=== PATIENT | female | born 1945 | race Caucasian/White ===

== ENCOUNTER 2019-12-13 08:48 | Emergency (ER) | payer MEDICARE ==
[~2019-12-13] VITALS: Ht 162 cm; Wt 172.2 kg
[2019-12-13] MEDS ORDERED: ESTR42.511 (09:41)
[2019-12-13] MEDS ORDERED: METO-333 (09:41)
[2019-12-13 09:46] LABS: BILIRUBIN,URINE NEGATIVE (NEGATIVE); CLARITY,URINE CLEAR; COLOR,URINE YELLOW; GLUCOSE, URINE (UA) NEGATIVE (NEGATIVE); KETONES,URINE NEGATIVE (NEGATIVE); LEUKOCYTE ESTERASE ,URINE NEGATIVE (NEGATIVE); NITRITE,URINE NEGATIVE (NEGATIVE); PROTEIN,URINE NEGATIVE (NEGATIVE)
[2019-12-13 09:59] LABS: BACTERIA,URINE NEGATIVE /HPF; CALCIUM OXALATE CRYSTALS,UR FEW /LPF; RBC,URINE RARE /HPF; SQUAMOUS EPITHELIAL CELL,UR 0-2 /HPF
--- NOTE | 2019-12-13 10:14 | ED Back Pain ---
General Chief Complaint: Back Problems Stated Complaint: BACK PAIN;R HAND PAIN;SOA Nursing Triage Note: TO ED PER W/C FROM HOME PATIENT REPORTS THAT SHE HAS HAD BACKPAIN FOR SEVERAL DAYS GOES ACRESS MIDDLE OF BACK. PAIN WORSE WHEN SHE MOVES. Nursing Sepsis Screen: No Definite Risk Source of Information: Patient Exam Limitations: No Limitations History of Present Illness Date Seen by Provider: Dec 13, 2019 Time Seen by Provider: 09:50 Initial Comments Initially accepted back pain and rib pain as well as left shoulder pain. Further evaluation reveals the patient has complaint of 2 weeks of cough with pain under her right ribs that has now moved to the left shoulder blade area. This is exacerbated by movement of the left arm. She also reports that she has atrial fibrillation but is not on anticoagulation. She did smoke but has quit. She takes blood pressure medicines. Denies nausea, vomiting, weakness or sweating. Denies specific breathing problems except for the cough exacerbation. Denies fever or chills. Timing/Duration: 2-3 Days, Changing Over Time, Getting Worse Severity: Moderate Pain/Injury Location: Back (left shoulder blade), Chest (tender bilateral ribs that is worse with cough) Radiation: Other (none) Method of Injury: Other (coughing) Modifying Factors: Improves With Immobilization; Worse With Movement (especially of the left arm); Improves With Rest Associated Symptoms: No fever, No weakness, No lower back pain Allergies and Home Medications Allergies Coded Allergies: No Known Drug Allergies (Unverified , 12/13/19) Patient Home Medication List Home Medication List Reviewed: Yes Review of Systems Constitutional: see HPI; No chills, No diaphoresis, No fever, No weakness EENTM: No nose congestion, No throat pain Respiratory: cough; No short of breath, No wheezing Cardiovascular: chest pain; No edema, No palpitations Gastrointestinal: abdominal pain (under ribs bilaterally); No nausea, No vomiting Musculoskeletal: see HPI, back pain, muscle pain Skin: No change in color, No lesions Psychiatric/Neurological: No Symptoms Reported All Other Systems Reviewed Negative Unless Noted: Yes Past Bjvlrwa-Bhufhj-Kklcqq Hx Past Med/Social Hx: Reviewed Nursing Past Med/Soc Hx Patient Social History Alcohol Use: Denies Use Recreational Drug Use: No Smoking Status: Never a Smoker Recent Foreign Travel: No Contact w/Someone Who Travel: No Recent Infectious Disease Expo: No Past Medical History Surgeries: Yes Respiratory: Yes COPD Cardiac: Yes Hypertension 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 oz. kg; 65.00 BMI Method: General Appearance: No Apparent Distress, WD/WN HEENT: PERRL/EOMI, Pharynx Normal Neck: Non Tender, Supple Cardiovascular: Regular Rate, Rhythm, No Murmur Respiratory: Lungs Clear, Normal Breath Sounds Gastrointestinal: Non Tender, Soft Back: No CVA Tenderness, No Vertebral Tenderness, Other (tender between scapula and spine on left eyelid) Extremity: Normal Range of Motion, Other (pain to left shoulder blade area exacerbated by arm movement) Neurologic/Psychiatric: Alert, Oriented x3 Skin: Normal Color, Warm/Dry Progress/Results/Core Measures Results/Orders Lab Results Laboratory Tests Test 12/13/19 09:39 12/13/19 10:50 12/13/19 11:15 Range/Units Urine Color YELLOW Urine Clarity CLEAR Urine pH 6.0 5-9 Urine Specific [place] <=1.005 1.016-1.022 Urine Protein NEGATIVE NEGATIVE Urine Glucose (UA) NEGATIVE NEGATIVE Urine Ketones NEGATIVE NEGATIVE Urine Nitrite NEGATIVE NEGATIVE Urine Bilirubin NEGATIVE NEGATIVE Urine Urobilinogen 0.2 < = 1.0 MG/DL Urine Leukocyte Esterase NEGATIVE NEGATIVE Urine RBC (Auto) NEGATIVE NEGATIVE Urine RBC RARE /HPF Urine WBC NONE /HPF Urine Squamous Epithelial Cells 0-2 /HPF Urine Crystals PRESENT H /LPF Urine Calcium Oxalate Crystals FEW H /LPF Urine Bacteria NEGATIVE /HPF Urine Casts NONE /LPF Urine Mucus NEGATIVE /LPF Urine Culture Indicated NO White Blood Count 12.7 H 4.3-11.0 10^3/uL Red Blood Count 4.72 4.35-5.85 10^6/uL Hemoglobin 13.2 11.5-16.0 G/DL Hematocrit 41 35-52 % Mean Corpuscular Volume 87 80-99 FL Mean Corpuscular Hemoglobin 28 25-34 PG Mean Corpuscular Hemoglobin Concent 32 32-36 G/DL Red Cell Distribution Width 15.7 H 10.0-14.5 % Platelet Count 248 130-400 10^3/uL Mean Platelet Volume 10.6 H 7.4-10.4 FL Neutrophils (%) (Auto) 69 42-75 % Lymphocytes (%) (Auto) 17 12-44 % Monocytes (%) (Auto) 12 0-12 % Eosinophils (%) (Auto) 2 0-10 % Basophils (%) (Auto) 0 0-10 % Neutrophils # (Auto) 8.8 H 1.8-7.8 X 10^3 Lymphocytes # (Auto) 2.2 1.0-4.0 X 10^3 Monocytes # (Auto) 1.5 H 0.0-1.0 X 10^3 Eosinophils # (Auto) 0.2 0.0-0.3 10^3/uL Basophils # (Auto) 0.0 0.0-0.1 10^3/uL Sodium Level 139 135-145 MMOL/L Potassium Level 3.9 3.6-5.0 MMOL/L Chloride Level 107 98-107 MMOL/L Carbon Dioxide Level 23 21-32 MMOL/L Anion Gap 9 5-14 MMOL/L Blood Urea Nitrogen 14 7-18 MG/DL Creatinine 0.80 0.60-1.30 MG/DL Estimat Glomerular Filtration Rate > 60 BUN/Creatinine Ratio 18 Glucose Level 92 70-105 MG/DL Calcium Level 9.8 8.5-10.1 MG/DL Corrected Calcium 10.0 8.5-10.1 MG/DL Magnesium Level 1.8 1.6-2.4 MG/DL Total Bilirubin 0.4 0.1-1.0 MG/DL Aspartate Amino Transf (AST/SGOT) 14 5-34 U/L Alanine Aminotransferase (ALT/SGPT) < 6 0-55 U/L Alkaline Phosphatase 103 40-136 U/L Myoglobin 33.2 10.0-92.0 NG/ML Troponin I < 0.028 <0.028 NG/ML Total Protein 7.2 6.4-8.2 GM/DL Albumin 3.8 3.2-4.5 GM/DL Prothrombin Time 13.6 12.2-14.7 SEC INR Comment 1.0 0.8-1.4 Activated Partial Thromboplast Time 31 24-35 SEC Micro Results Microbiology 12/13/19 Influenza Types A,B Antigen (ELIZABETH) - Final, Complete My Orders Orders - CODIE LUEVANO MD Ua Culture If Indicated (12/13/19 09:33) Chest Pa/Lat (2 View) (12/13/19 09:51) Cbc With Automated Diff (12/13/19 09:51) Magnesium (12/13/19 09:51) Ekg Tracing (12/13/19 09:51) Comprehensive Metabolic Panel (12/13/19 09:51) Myoglobin Serum (12/13/19 09:51) Protime With Inr (12/13/19 09:51) Partial Thromboplastin Time (12/13/19 09:51) O2 (12/13/19 09:51) Monitor-Rhythm Ecg Trace Only (12/13/19 09:51) Lipid Panel (12/14/19 06:00) Troponin I (12/13/19 09:51) Influenza A And B Antigens (12/13/19 10:37) Ketorolac Injection (Toradol Injection) (12/13/19 12:20) Orphenadrine Injection (Norflex Injectio (12/13/19 12:20) Vital Signs/I&O 12/13/19 08:48 Temp 36.4 Pulse 74 Resp 18 B/P (MAP) 174/104 (127) Pulse Ox 96 O2 Delivery Room Air Blood Pressure Mean: 127 Progress Progress Note : Progress Note Seen and evaluated. Two-view chest x-ray and cardiac workup initiated. Patient has had 2 full dose aspirin this morning for the pain so we will hold ASA. Monitor patient. 1230: No acute findings. We did give Toradol and Norflex IV for pain. Monitor patient. Initial ECG Impression Date: Dec 13, 2019 Initial ECG Impression Time: 09:57 Initial ECG Rate: 65 Initial ECG Rhythm: Normal Sinus Initial ECG Impression: Normal Initial ECG Comparisson: No Previous ECG Available Comment Normal sinus rhythm with normal axis. No evidence of ST elevation WI. No previous available for comparison. Interpreted by me. Diagnostic Imaging Diagonstic Imaging: Xray Plain Films/CT/US/NM/MRI: chest Comments [facility], [place] NAME: JENIFFER TORREZ [facility] REC#: [id number] PT STATUS: REG ER : 1945 PHYSICIAN: CODIE LUEVANO MD ADMIT DATE: 12/13/19/ER Draft Date of Exam:12/13/19 CHEST PA/LAT (2 VIEW) HISTORY: Left arm pain traveling into the neck. COMPARISON: None. TECHNIQUE: Two views of the chest. FINDINGS: The lung volumes are mildly large. No focal consolidation is seen. There is no pleural effusion or pneumothorax. The cardiac silhouette appears normal in size and contour. There is a moderate hiatal hernia. IMPRESSION: 1. No acute pulmonary abnormality is seen. 2. Hiatal hernia. Dictated on workstation # [id number] Dict: 12/13/19 1039 Trans: 12/13/19 1044 [id number] Interpreted by: BRIAN DUVALL MD Electronically signed by: Departure Impression Primary Impression: Back strain of thoracic region Qualified Codes: S29.019A - Strain of muscle and tendon of unspecified wall of thorax, initial encounter Additional Impression: COPD (chronic obstructive pulmonary disease) Qualified Codes: J44.9 - Chronic obstructive pulmonary disease, unspecified Disposition: 01 HOME, SELF-CARE Condition: Improved Departure-Patient Inst. Decision time for Depature: 12:49 Referrals: RONEY REDDY MD (PCP) Primary Care Physician TAMMY BLACK MD FACP FAC CCDS Patient Instructions: COPD Including Emphysema (DC), Chest Pain (DC), Muscle Strain (DC) Add. Discharge Instructions: All discharge instructions reviewed with patient and/or family. Voiced understanding. Take medications as directed. Follow-up with your doctor for recheck. Call and make appointment with band shover as discussed. Return for worse pain, fever, vomiting, weakness, breathing problems or other concerns as needed. You may take ibuprofen 400 mg every 8 hours as needed for pain. You may take Tylenol/acetaminophen 1000 mg every 8 hours as needed for pain. You should continue your albuterol breathing treatments every 4-6 hours as needed for wheezing, cough or shortness of breath. Scripts Cyclobenzaprine HCl (Cyclobenzaprine HCl) 10 Mg Tablet 10 MG PO Q8H PRN for SPASMS, #10 TAB 0 Refills Prov: CODIE LUEVANO MD 12/13/19 CODIE LUEVANO MD Dec 13, 2019 10:14
--- NOTE | 2019-12-13 10:44 | Diagnostic Imaging Report ---
HISTORY: Left arm pain traveling into the neck. COMPARISON: None. TECHNIQUE: Two views of the chest. FINDINGS: The lung volumes are mildly large. No focal consolidation is seen. There is no pleural effusion or pneumothorax. The cardiac silhouette appears normal in size and contour. There is a moderate hiatal hernia. IMPRESSION: 1. No acute pulmonary abnormality is seen. 2. Hiatal hernia. Dictated by: Dictated on workstation # [id number]
[2019-12-13 10:56] LABS: BASOPHILS % (AUTO) 0 % (0-10); EOSINOPHILS # (AUTO) 0.2 10^3/uL (0.0-0.3); EOSINOPHILS % (AUTO) 2 % (0-10); HEMATOCRIT 41 % (35-52); HEMOGLOBIN 13.2 G/DL (11.5-16.0); LYMPHOCYTES # (AUTO) 2.2 X 10^3 (1.0-4.0); LYMPHOCYTES % (AUTO) 17 % (12-44); MEAN CORPUSCULAR HEMOGLOBIN 28 PG (25-34); MEAN CORPUSCULAR HGB CONC 32 G/DL (32-36); MEAN CORPUSCULAR VOLUME 87 FL (80-99); MEAN PLATELET VOLUME 10.6 FL (7.4-10.4); MONOCYTES # (AUTO) 1.5 X 10^3 (0.0-1.0); MONOCYTES % (AUTO) 12 % (0-12); NEUTROPHILS # (AUTO) 8.8 X 10^3 (1.8-7.8); NEUTROPHILS % (AUTO) 69 % (42-75); PLATELET COUNT 248 10^3/uL (130-400); RED CELL DISTRIBUTION WIDTH 15.7 % (10.0-14.5); WHITE BLOOD COUNT 12.7 10^3/uL (4.3-11.0)
[2019-12-13 11:17] LABS: ALANINE AMINOTRANSFERASE < 6 U/L (0-55); ALBUMIN 3.8 GM/DL (3.2-4.5); ALKALINE PHOSPHATASE 103 U/L (40-136); BILIRUBIN,TOTAL 0.4 MG/DL (0.1-1.0); BUN/CREATININE RATIO 18; CALCIUM 9.8 MG/DL (8.5-10.1); CARBON DIOXIDE 23 MMOL/L (21-32); CHLORIDE 107 MMOL/L (98-107); GFR ESTIMATED > 60; GLUCOSE 92 MG/DL (70-105); MAGNESIUM 1.8 MG/DL (1.6-2.4); POTASSIUM 3.9 MMOL/L (3.6-5.0); SODIUM 139 MMOL/L (135-145); TOTAL PROTEIN 7.2 GM/DL (6.4-8.2)
[2019-12-13 11:35] LABS: PROTHROMBIN TIME PATIENT 13.6 SEC (12.2-14.7)
[2019-12-13] MEDS ORDERED: KETOROLAC 30 MG/ML VIAL IVP STA (12:20)
[2019-12-13] MEDS ORDERED: ORPHENADRINE 60 MG/2 ML (NORFLEX) AMP IV STA (12:20)
[2019-12-13] MEDS ORDERED: CYCL10TA9 PO (12:54)
[2019-12-13 13:17] VITALS: BP 135/99
== END 2019-12-13 13:17 | disposition home or self-care (01) ==
LOC: EDUNIT# 08:48 → ER 08:49
DX: S29.012A Strain of muscle and tendon of back wall of thorax, initial encounter (principal); J44.9 Chronic obstructive pulmonary disease, unspecified; X58.XXXA Exposure to other specified factors, initial encounter
CPT/HCPCS: 36415; 71046; 80053; 81000; 83735; 83874; 84484; 85025; 85610; 85730; 87804; 93005; 93041; 96374; 96375

== ENCOUNTER → 2019-12-27 | Outpatient (CLI) | payer MEDICARE ==
[~2019-12-27] MED LIST: CYCL10TA9 PO; ESTR42.511; METO-333
--- NOTE | 2019-12-27 12:22 | Diagnostic Imaging Report ---
INDICATION: Postmenopausal state, screening for osteoporosis. COMPARISON: 10/27/2001 FINDINGS: AP Spine L1-L4: [BMD (g/cm2): 0.946] [T-Score: -2.1] [Z-Score: -0.7] [BMD Previous: 0.980] [BMD % Change: -3.5] LT Hip Neck: [BMD (g/cm2): 0.680] [T-Score: -2.6] [Z-Score: -0.9] LT Hip Total: [BMD (g/cm2):0.699] [T-Score:-2.4] [Z-Score: -0.9] [BMD Previous: 0.806] [BMD % Change: -13.3] RT Hip Neck: [BMD (g/cm2):0.668] [T-Score:-2.7] [Z-Score:-0.9] RT Hip Total: [BMD (g/cm2):0.688] [T-score:-2.5] [Z-Score:-1.0] [BMD Previous:0.773] [BMD % Change:-11.0] *Indicates significant change from prior examination based on 95% confidence level. World Health Organization criteria for BMD interpretation classify patients as Normal (T-score at or above -1.0), Osteopenic (T-score between -1.0 and -2.5) or Osteoporotic (T-score at or below -2.5). LIMITATIONS AND MODIFICATION: None. FRACTURE RISK (FRAX SCORE): The ten year probability of (%): Major Osteoporotic Fracture: [18.5] Hip Fracture: [6.4] IMPRESSION: 1. Osteoporosis. 2. No significant change in bone mineral density since prior examination. 3. See below National Osteoporosis Foundation guidelines on when to potentially initiate pharmacologic therapy. Based on the National Osteoporosis Foundation Guidelines, pharmacologic treatment should be initiated in any of the following, unless clinical conditions suggest otherwise: * Any patient with prior fragility fracture of the hip or vertebrae. A spine fracture indicates 5X risk for subsequent spine fracture and 2X risk for subsequent hip fracture. * Osteoporosis (T-score <-2.5). * Postmenopausal women and men age 50 and older with low bone mass/osteopenia (T-score between -1.0 and -2.5) by DXA and 10-year major osteoporotic fracture greater than 20% or a 10-year probability of hip fracture greater than 3%. These fracture risks are supplied above in the FRAX score, if applicable. * Clinician judgement and/or patient preferences may indicate treatment for people with 10-year fracture probabilities above or below these levels. Dictated by: Dictated on workstation # [id number]
== END ==
LOC: RAD 08:27
PROVIDERS: ATTEND Nurse Practitioner Family
DX: Z13.820 Encounter for screening for osteoporosis (principal); M81.0 Age-related osteoporosis without current pathological fracture; Z78.0 Asymptomatic menopausal state
CPT/HCPCS: 77080

== ENCOUNTER 2021-02-21 09:22 | Outpatient (CLI) | payer MEDICARE ==
[~2021-02-21] VITALS: Ht 157.5 cm; Wt 77.5 kg
[2021-02-21] MEDS ORDERED: LEFL20TA18 PO (12:16)
== END 2021-02-21 13:39 | disposition home or self-care (01) ==
LOC: PREOP 09:22
PROVIDERS: ATTEND Surgery
DX: Z01.818 Encounter for other preprocedural examination (principal)

== ENCOUNTER 2021-02-27 11:00 | Day surgery (SDC) | payer MEDICARE ==
[2021-02-27] VITALS (16 sets, daily range): BP systolic 101–186; BP diastolic 55–96
[~2021-02-27] VITALS: Ht 157.5 cm; Wt 77.5 kg
[~2021-02-27 11:00] MED LIST changes: +LEFL20TA18 PO
[2021-02-27] MEDS ORDERED: LACTATED RINGERS 0 ML IV ONE (11:01)
[2021-02-27] MEDS ORDERED: NS IV 500 ML 500 ML ONE (11:02)
[2021-02-27] MEDS ORDERED: NS IV 500 ML 500 ML IV PRN (11:15)
[2021-02-27] MEDS ORDERED: MIDAZOLAM 5 MG/5 ML (VERSED) VIAL IV ONE (11:15)
[2021-02-27] MEDS ORDERED: LIDOCAINE JELLY 2% 6 ML SYRINGE MM PRN (11:15)
[2021-02-27] MEDS ORDERED: fentaNYL INJ 100 MCG/2 ML AMP IVP ONE (11:15)
--- NOTE | 2021-02-27 11:23 | Conscious Sedation/ASA ---
Conscious Sedation Pre-Proced Time 11:00 ASA Score 2 For ASA 3 and 4: Consider anesthesia and medical clearance. Also, for patients with a history of failed moderate sedation consider anesthesia. Airway Lungs Heart ASA score ASA 1: a normal healthy patient ASA 2: a patient with a mild systemic disease (mid diabetes, controlled hypertension, obesity ASA 3: a patient with a severe systemic disease that limits activity (angina, COPD, prior Myocardial infarction) ASA 4: a patient with an incapacitating disease that is a constant threat to life (CHF, renal failure) ASA 5: a moribund patient not expected to survive 24 hrs. (ruptured aneurysm) ASA 6: a declared brain- patient whose organs are being harvested. For emergent operations, add the letter E after the classification Mallampati Classification Grade 2 Sedation Plan Analgesia, Amnesia, Plan communicated to team members, Discussed options with patient/fam, Discussed risks with patient/fam The patient is an appropriate candidate to undergo the planned procedure, sedation, and anesthesia. The patient immediately re-assessed prior to indication. RICKIE CHAVIRA MD February 27, 2021 11:23
--- NOTE | 2021-02-27 11:24 | Progress Note-Pre Operative ---
Pre-Operative Progress Note H&P Reviewed The H&P was reviewed, patient examined and no changes noted. Date Seen by Provider: February 27, 2021 Time Seen by Provider: 11:00 Date H&P Reviewed: February 27, 2021 Time H&P Reviewed: 11:00 Pre-Operative Diagnosis: hx colon polyp RICKIE CHAVIRA MD February 27, 2021 11:24
--- NOTE | 2021-02-27 11:25 | Discharge Inst-Surgical ---
D/C Lap Instructions-CAIT Follow Up Activity as tolerated High Fiber Diet 25g or more per day Avoid Alcohol, Caffeine, Spicy [place] and Acid foods. Drink 64 fluid oz or more of fluids per day. Symptoms to Report: Fever over 101 degree F, Nausea/Vomiting If any problems/questions: Contact your physician or go to Emergency Room RIKCIE CHAVIRA MD February 27, 2021 11:25
[2021-02-27] MEDS ORDERED: morphine INJ 10 MG/ML 1ML (SYR OR VIAL) IVP PRN ×2 (11:30)
[2021-02-27] MEDS ORDERED: ACETAMINOPHEN 325 MG TABLET PO PRN (11:30)
[2021-02-27] MEDS ORDERED: ONDANSETRON 4 MG/2 ML (SDV) Z0FRAN IVP PRN (11:30)
[2021-02-27] MEDS ORDERED: MIDAZOLAM 5 MG/5 ML (VERSED) VIAL ONE ×3 (11:52)
[2021-02-27] MEDS ORDERED: fentaNYL INJ 100 MCG/2 ML AMP ONE ×2 (11:52)
[2021-02-27] MEDS ORDERED: LIDOCAINE JELLY 2% 6 ML SYRINGE ONE (11:52)
--- NOTE | 2021-02-27 13:25 | Progress Note-Post Operative ---
Post-Operative Progess Note Surgeon (s)/Senior International Tax Manager (s) Surgeon RICKIE CHAVIRA MD Senior International Tax Manager: none Pre-Operative Diagnosis hx colon polyp Post-Operative Diagnosis chronic stage 2 ext and int hemorrhoids, moderate sigmoid diverticulosis. Procedure & Operative Findings Date of Procedure 02/27/21 Procedure Performed/Findings colonoscopy Anesthesia Type cs Estimated Blood Loss Estimated blood loss (mL): minimal Specimens/Packing Specimens Removed none RICKIE CHAVIRA MD February 27, 2021 13:25
--- NOTE | 2021-02-27 20:22 | OPERATIVE REPORT ---
DATE OF SERVICE: 02/27/2021 ATTENDING PRIMARY CARE PHYSICIAN: Dr. Jj Montero. PREOPERATIVE DIAGNOSES: Screening colonoscopy with history of colon polyp. POSTOPERATIVE DIAGNOSES: Chronic stage II external and internal hemorrhoids, moderate sigmoid diverticulosis. PROCEDURE: Colonoscopy. SURGEON: Rickie Chavira MD. ANESTHESIA: Conscious sedation. ESTIMATED BLOOD LOSS: Minimal. FINDINGS: Chronic stage II external and internal hemorrhoids, moderate sigmoid diverticulosis. DISPOSITION: The patient tolerated the procedure well. INDICATIONS: The patient is a 75-year-old female in need of a screening colonoscopy. Her last colonoscopy was in 2014 and believes this to be normal. She states that she has had other colonoscopies before where polyps were identified. However, she believes these were benign. She does report some constipation and some crampy lower abdominal pain. No red blood per rectum, no dark tarry stools. She does not report any family history of colon cancer. DESCRIPTION OF PROCEDURE: The patient was brought to the endoscopy suite, laid in the left lateral decubitus position. After adequate IV pain and sedative medications and conscious sedation anesthesia, a digital rectal examination was performed. Chronic stage II external and internal hemorrhoids were identified, which were not actively edematous nor inflamed and no bleeding. Normal sphincter tone was felt and there were no palpable masses. The endoscope was then intubated to the anus and rectum gently insufflated. The endoscope was then advanced through the valves of Disla of the rectum with no polyps or any neoplasms identified. Through the sigmoid colon, a moderate sigmoid diverticulosis was identified. The endoscope was then advanced to the remainder of the descending, transverse and ascending colon to the cecum. These segments were normal. There were no polyps or any neoplasms identified throughout the colon or rectum. The endoscope was then slowly withdrawn while taking a second look and suctioning residual air with no additional findings. The patient tolerated the procedure well. No polyps were identified, and she does not have any family history of colon cancer and if she is asymptomatic, she does not need another colonoscopy for another 10 years. Job ID: [id number] DocumentID: [id number] Dictated Date: 02/27/2021 13:21:02 Laborer Stores Date: 02/27/2021 20:21:21 Dictated By: RICKIE CHAVIRA MD
== END 2021-02-27 14:10 | disposition home or self-care (01) ==
LOC: ENDO 11:00
PROVIDERS: ATTEND Surgery
DX: Z12.11 Encounter for screening for malignant neoplasm of colon (principal); K64.8 Other hemorrhoids; K64.4 Residual hemorrhoidal skin tags; K57.30 Diverticulosis of large intestine without perforation or abscess without bleeding; J44.9 Chronic obstructive pulmonary disease, unspecified; I10 Essential (primary) hypertension; L40.50 Arthropathic psoriasis, unspecified; Z90.710 Acquired absence of both cervix and uterus; Z86.010 Personal history of colon polyps; Z98.890 Other specified postprocedural states; Z80.9 Family history of malignant neoplasm, unspecified; Z87.891 Personal history of nicotine dependence

== ENCOUNTER → 2022-02-25 | Outpatient (CLI) | payer MEDICARE ==
[~2022-02-25] MED LIST changes: +CYCL10TA25 PO; -CYCL10TA9 PO
--- NOTE | 2022-02-25 20:17 | Diagnostic Imaging Report ---
3-D bilateral screening mammogram. The current study was also evaluated with a Computer Aided Detection (CAD) system. This study is compared to prior exams of 02/15/2021 and 09/25/2016. At this time, there are no current complaints. FINDINGS: There are scattered fibroglandular densities in both breasts which could obscure a lesion. Overall, there does not appear to have been any significant change when compared to the prior exam. No primary or secondary sign of malignancy is noted. IMPRESSION: There is no radiographic evidence for malignancy. ACR BI-RADS Category 1: Negative. Result letter will be mailed to the patient. Note: At least 10% of breast cancer is not imaged by mammography. Dictated by: Dictated on workstation # [id number]
== END ==
LOC: RAD 11:00
PROVIDERS: ATTEND Nurse Practitioner Family
DX: Z12.31 Encounter for screening mammogram for malignant neoplasm of breast (principal)
CPT/HCPCS: 77063; 77067

== ENCOUNTER 2022-07-16 05:34 | Outpatient (CLI) | payer MEDICARE ==
[~2022-07-16] VITALS: Ht 155 cm; Wt 70.0 kg
[2022-07-16] MEDS ORDERED: LOSA50TA63 PO (10:49)
[2022-07-16] MEDS ORDERED: LOVA40TA2 PO (10:49)
[2022-07-17] MEDS ORDERED: ACHD5005 PO (10:37)
== END 2022-07-16 11:15 ==
LOC: PREOP 05:34
PROVIDERS: ATTEND Surgery
DX: Z01.818 Encounter for other preprocedural examination (principal); Z45.2 Encounter for adjustment and management of vascular access device

== ENCOUNTER 2022-07-17 10:24 | Day surgery (SDC) | payer MEDICARE ==
[2022-07-17] VITALS (7 sets, daily range): BP systolic 104–134; BP diastolic 55–76
[~2022-07-17] VITALS: Ht 155 cm; Wt 70.0 kg
[~2022-07-17 10:24] MED LIST changes: +LACTATED RINGERS 1,000 ML IV PRN; +LOSA50TA63 PO; +LOVA40TA2 PO
--- NOTE | 2022-07-17 10:34 | Progress Note-Pre Operative ---
Pre-Operative Progress Note Date H&P Reviewed: Jul 17, 2022 Time H&P Reviewed: 10:30 History & Physical: H&P Reviewed, Patient Examed, No changes noted Pre-Operative Diagnosis: Lung Cancer, poor venous access SHAHBAZ VILLAREAL APRN Jul 17, 2022 10:34
[2022-07-17] MEDS ORDERED: ACHD5005 PO (10:37)
--- NOTE | 2022-07-17 10:38 | Discharge Inst-Surgical ---
D/C Lap Instructions-KIDO Reconcile Patient Problems Problems Reviewed?: Yes New, Converted, or Re-Newed RX: RX on Chart Follow Up Appt as needed Activity as tolerated No driving for 24 hours No driving while on pain medications Incentive Spirometry use every 2 hours while awake Regular Diet Symptoms to Report: Fever over 101 degree F, Nausea/Vomiting Infection Signs and Symptoms to report: Increased redness, Foul odor of wound, Increased drainage Bathing instructions: May shower Operative Area Clean/Dry; Keep incision clean/dry If any problems/questions: Contact your physician or go to Emergency Room SHAHBAZ VILLAREAL APRN Jul 17, 2022 10:38
[2022-07-17] MEDS ORDERED: morphine INJ 10 MG/ML 1ML (SYR OR VIAL) IVP PRN (10:45)
[2022-07-17] MEDS ORDERED: ONDANSETRON 4 MG/2 ML (SDV) Z0FRAN IVP PRN (10:45)
[2022-07-17] MEDS ORDERED: ACETAMINOPHEN 325 MG TABLET PO PRN (10:45)
[2022-07-17] MEDS ORDERED: HYDROcodone/APAP 5 MG/325 MG (LORTAB) TAB PO ONE (10:45)
[2022-07-17] MEDS ORDERED: ceFAZolin INJECTION 1,000 MG VIAL IV ONE (11:00)
[2022-07-17] MEDS ORDERED: HEParin (CENTRAL IV FLUSH) 500 UNIT/5 ML SYR ONE (12:25)
[2022-07-17] MEDS ORDERED: LIDOCAINE/EPI 2% 1:200,00 (XYLOCAINE) 10 ML VIAL ONE ×2 (12:25→12:26)
[2022-07-17] MEDS ORDERED: 0.9% SODIUM CHLORIDE PF INJ 20 ML VIAL ONE (12:25)
[2022-07-17] MEDS ORDERED: PROPOFOL INJECTION 50 ML IV ONE (12:39)
[2022-07-17] MEDS ORDERED: LIDOCAINE PF 2% 5 ML (XYLOCAINE) VIAL ONE (12:39)
[2022-07-17] MEDS ORDERED: LIDOCAINE/EPI 2% 1:200,00 (XYLOCAINE) 10 ML VIAL IJ ONE (13:03)
[2022-07-17] MEDS ORDERED: HEParin (CENTRAL IV FLUSH) 500 UNIT/5 ML SYR IV ONE (13:15)
[2022-07-17] MEDS ORDERED: 0.9% SODIUM CHLORIDE PF INJ 10 ML VIAL IV ONE (13:15)
--- NOTE | 2022-07-17 13:17 | Progress Note-Post Operative ---
Post-Operative Progess Note Surgeon (s)/Security System Administrator (s) Surgeon RICKIE CHAVIRA MD Security System Administrator: lv dave ARPN Pre-Operative Diagnosis Lung Cancer, poor venous access Post-Operative Diagnosis same Procedure & Operative Findings Date of Procedure 07/17/22 Procedure Performed/Findings placement groshong implantable catheter under flouroscopy. Anesthesia Type mac Estimated Blood Loss Estimated blood loss (mL): minimal Specimens/Packing Specimens Removed none RICKIE CHAVIRA MD Jul 17, 2022 13:17
--- NOTE | 2022-07-17 14:13 | Diagnostic Imaging Report ---
INDICATION: Port placement. FINDINGS: Subclavian catheter tip projects over the lower SVC. There is no pneumothorax. No focal consolidation. Curvilinear radiopacity projects over the right lower chest, presumed overlying, but correlate clinically. IMPRESSION: Port placed in good position without apparent complication. Presumptive overlying curvilinear metallic radiopacity overlying the right chest. Dictated by: Dictated on workstation # [id number]
--- NOTE | 2022-07-17 15:36 | Diagnostic Imaging Report ---
INDICATION: Fluoroscopy for port placement. Fluoroscopy was provided in the OR during port placement. Total of 8 seconds of fluoroscopic time was utilized. A single image does demonstrate tip of the port overlying the right atrium. IMPRESSION: Fluoroscopy for port placement. Dictated by: Dictated on workstation # [id number]
--- NOTE | 2022-07-17 20:37 | OPERATIVE REPORT ---
DATE OF SERVICE: 07/17/2022 ATTENDING PRIMARY CARE PHYSICIAN: Juani Pavon APRN PREOPERATIVE DIAGNOSIS: Metastatic right lung cancer. POSTOPERATIVE DIAGNOSIS: Metastatic right lung cancer. PROCEDURE: Placement of left subclavian Groshong implantable catheter under fluoroscopy. SURGEON: Rickie Chavira MD. ANESTHESIA: Monitored anesthesia care with local. ESTIMATED BLOOD LOSS: Minimal. FINDINGS: Catheter tip at superior vena caval -- right atrial junction. DISPOSITION: The patient tolerated the procedure well. 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 She did opt for immunotherapy and will require Groshong implantable catheter for administration of medications as well as frequent blood draws and her poor peripheral venous circulation. DESCRIPTION OF PROCEDURE: The patient was brought to the operating room, laid supine on the table. After adequate IV pain and sedative medications and monitored anesthesia care, the chest and neck were prepped and draped in standard surgical fashion. A 1% lidocaine with epinephrine was used to anesthetize the left subclavian region. The left subclavian vein was then cannulated with drawing of venous blood. The guidewire was then inserted under fluoroscopy. The cannulating needle removed and a skin incision made using a 15 blade. The dilator and sheath were then introduced over the guidewire. The guidewire and the dilator were then removed and the Groshong catheter was placed until the catheter tip was at the superior vena caval -- right atrial junction and then the sheath was then removed. Inner wire within the catheter was then removed. Catheter cut down to size and port placed onto the catheter. The chest reservoir was then created by creating a plane between the anterior pectoralis fascia and the subcutaneous fat using blunt dissection as well as electrocautery. Good hemostasis was observed. The port was then placed into the reservoir and sutured to the anterior pectoralis fascia using interrupted 3-0 Vicryl sutures. The subcutaneous tissue was then reapproximated with the same suture in an interrupted manner. Skin was closed using 4-0 Monocryl running subcuticular suture. Wound was then cleaned and covered with Dermabond. The port was accessed with a non-coring [place] needle and venous blood drawn and heparinized saline pushed in without any resistance. The patient tolerated the procedure well. We will get a post-procedure chest x-ray once confirmation of placement of the port may be accessed and used at any time. Job ID: [id number] DocumentID: [id number] Dictated Date: 07/17/2022 13:42:15 Flooring Sales Manager Date: 07/17/2022 20:36:29 Dictated By: RICKIE CHAVIRA MD
== END 2022-07-17 14:30 ==
LOC: SDC 10:24
PROVIDERS: ATTEND Surgery
DX: C34.91 Malignant neoplasm of unspecified part of right bronchus or lung (principal); I87.8 Other specified disorders of veins; Z87.891 Personal history of nicotine dependence
CPT/HCPCS: 36561; 71045; 76000; 87081; 94664; C1788